=== PATIENT | male | born 1965 | race Hispanic/Latino ===

== ENCOUNTER 2017-02-15 14:35 | Emergency (ER) | payer SELFPAY ==
[2017-02-15 15:30] VITALS: BP 126/82
--- NOTE | 2017-02-15 20:40 | Emergency Department Report ---
ED Recheck HPI - General Chief Complaint: Psych Stated Complaint: OUT OF PSYCH MEDICATION Time Seen by Provider: 02/15/17 19:53 Source: patient Mode of arrival: Ambulatory Limitations: No Limitations - History of Present Illness Initial Comments: 52M PMh Schizophrenia p/w request for medication refill on Zyprexa and Zoloft. Patient states he was released from [facility] a week ago and has outpatient follow- up but has not had access to his medicines in several days. Patient is awake alert and oriented 3 not in acute distress. States that he was advised to come to the ED by police. Patient is unclear why police wanted him to come to the ED. Patient is not being supervised and is not in custody at this time. Patient denies suicidal or homicidal ideation denies desire to hurt himself or anyone else, denies any active auditory or visual hallucinations. 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 Patient denies chest pain palpitations shortness of breath nausea vomiting dysuria or hematuria. Denies paresthesias in upper lower extremities is ambulatory without assistance. Patient states he does have outpatient psychiatric follow-up but is unable to state exactly where MD Complaint: medication refill request Onset/Timin -: week(s) Returns Today for: request for prescription Symptoms Since Prior Visit: no new symptoms Context: ran out of medication - Related Data Previous Rx's Medication Instructions Recorded Last Taken Type Olanzapine [Zyprexa] 10 mg PO QDAY #5 tablet 02/15/17 Unknown Rx Sertraline [Zoloft] 50 mg PO QDAY #5 tab 02/15/17 Unknown Rx Allergies Allergy/AdvReac Type Severity Reaction Status Date / Time No Known Allergies Allergy Unverified 02/15/17 15:30 ED Review of Systems ROS: Stated complaint: OUT OF PSYCH MEDICATION Other details as noted in HPI Constitutional: denies: chills, fever Eyes: denies: eye pain, eye discharge, vision change ENT: denies: ear pain, throat pain Respiratory: denies: cough, shortness of breath, wheezing Cardiovascular: denies: chest pain, palpitations Endocrine: no symptoms reported Gastrointestinal: denies: abdominal pain, nausea, diarrhea Genitourinary: denies: urgency, dysuria Musculoskeletal: denies: back pain, joint swelling, arthralgia Skin: denies: rash, lesions Neurological: denies: headache, weakness, paresthesias Psychiatric: denies: anxiety, depression Hematological/Lymphatic: denies: easy bleeding, easy bruising ED Past Medical Hx - Past Medical History Hx Psychiatric Treatment: Yes Additional medical history: paranoid schizophrenia - Social History Smoking Status: Current Every Day Smoker - Medications Home Medications: Home Medications Medication Instructions Recorded Confirmed Last Taken Type Olanzapine [Zyprexa] 10 mg PO QDAY #5 tablet 02/15/17 Unknown Rx Sertraline [Zoloft] 50 mg PO QDAY #5 tab 02/15/17 Unknown Rx ED Physical Exam - General Limitations: No Limitations General appearance: alert, in no apparent distress - Head Head exam: Present: atraumatic, normocephalic - Eye Eye exam: Present: normal appearance, PERRL, EOMI - ENT ENT exam: Present: mucous membranes moist - Neck Neck exam: Present: normal inspection - Respiratory Respiratory exam: Present: normal lung sounds bilaterally. Absent: respiratory distress - Cardiovascular Cardiovascular Exam: Present: regular rate, normal rhythm. Absent: systolic murmur, diastolic murmur, rubs, gallop - GI/Abdominal GI/Abdominal exam: Present: soft, normal bowel sounds - Rectal Rectal exam: Present: deferred - Extremities Exam Extremities exam: Present: normal inspection - Back Exam Back exam: Present: normal inspection - Neurological Exam Neurological exam: Present: alert, oriented X3, CN II-XII intact, normal gait - Psychiatric Psychiatric exam: Present: normal affect, normal mood - Skin Skin exam: Present: warm, dry, intact, normal color. Absent: rash ED Course Vital Signs 02/15/17 15:23 Temperature 99.2 F Pulse Rate 109 H Respiratory 18 Rate Blood Pressure 126/82 O2 Sat by Pulse 95 Oximetry ED Recheck MDM - Medical Decision Making A/P: med refill, possible malingering 1-short refill on Zoloft and Zyprexa 2-I gave patient referral information for outpatient psychiatry and primary care 3-patient exhibits no acute signs of psychosis suicidality or homicidality at this time, I discussed this with rn resource nurse Mr. Aftab Leo at bedside Critical care attestation.: If time is entered above; I have spent that time in minutes in the direct care of this critically ill patient, excluding procedure time. ED Disposition Clinical Impression: Medication refill Disposition: DC-01 TO HOME OR SELFCARE Is pt being admited?: No Does the pt Need Aspirin: No Condition: Stable Additional Instructions: [email or web address] Prescriptions: Olanzapine [Zyprexa] 10 mg PO QDAY #5 tablet Sertraline [Zoloft] 50 mg PO QDAY #5 tab Referrals: [facility] [place] [Outside] - 3-5 Days [facility] [Outside] - 3-5 Days [facility] [Outside] - 3-5 Days [facility] [Outside] - 3-5 Days [facility] [[facility]] - 3-5 Days Time of Disposition: 20:43
[2017-02-15] MEDS: ZOLOFT PO ONE (21:00)
== END 2017-02-15 21:00 | disposition home or self-care (01) ==
LOC: ED 14:35
DX: Z76.0 Encounter for issue of repeat prescription (principal); F20.0 Paranoid schizophrenia; F17.200 Nicotine dependence, unspecified, uncomplicated